=== PATIENT | female | born 1950 | race Two or more races ===

== ENCOUNTER 2022-02-23 11:14 | Emergency (ER) | payer MEDICARE, MEDICAID ==
[~2022-02-23] VITALS: Ht 157.5 cm; Wt 71.4 kg
[2022-02-23 11:28] VITALS: BP 145/67
[2022-02-23] MEDS ORDERED: ACETAMINOPHEN 325 MG TABLET PO ONE (12:45)
== END 2022-02-23 13:49 | disposition home or self-care (01) ==
LOC: EMS 11:14
DX: M54.50 Low back pain, unspecified (principal); M19.90 Unspecified osteoarthritis, unspecified site; Z98.890 Other specified postprocedural states; V89.2XXA Person injured in unspecified motor-vehicle accident, traffic, initial encounter; Y93.89 Activity, other specified; Y92.411 Interstate highway as the place of occurrence of the external cause; Y99.8 Other external cause status
CPT/HCPCS: 99282; 99283